=== PATIENT | female | born 1995 | race Caucasian/White ===

== ENCOUNTER 2017-03-23 08:43 | Day surgery (SDC) | payer OTHER ==
[~2017-03-23] VITALS: Ht 160 cm; Wt 79.4 kg
[~2017-03-23 08:43] MED LIST: BACTRIM DS1 TAB PO; BACTROBAN TOP; CIPRO500 MG OR; DOXYCYCL HYC100 MG PO; KEFLEX500 MG PO; LORTAB 5 OR; LORTAB 5/3255 MG PO; LORTAB 7.57.5 MG PO; MUPIROCIN2 % EX; NO HOME MEDS; NORTREL PO; PRILOSEC20 MG PO; ULTRAM50 M1 OR; ULTRAM50 MG PO
[2017-03-23] MEDS ORDERED: MOTRIN400 MG PO (12:35)
[2017-03-23 14:56] VITALS: BP 100/55
== END 2017-03-23 13:05 | disposition home or self-care (01) | DRG 572 ==
LOC: ORM 08:43
PROVIDERS: ATTEND Surgery
PROC: 0JBM0ZZ Excision of Left Upper Leg Subcutaneous Tissue and Fascia, Open Approach (ICD-10-PCS; principal; 2017-03-23)
DX: L72.9 Follicular cyst of the skin and subcutaneous tissue, unspecified (principal)

== ENCOUNTER 2021-01-02 07:30 | Day surgery (SDC) | payer OTHER ==
[~2021-01-02] VITALS: Ht 160 cm; Wt 84.4 kg
[~2021-01-02 07:30] MED LIST changes: +BIRTH CONTROL PILL PO; +MOTRIN400 MG PO; +PRENATA3 PO; +STOOL SOFTENER100 M1 PO; +TORADOL PO
[2021-01-02] MEDS ORDERED: PERCOCET 5/321 COMBO PO (09:24)
[2021-01-02 10:16] VITALS: BP 96/52
== END 2021-01-02 10:05 | disposition home or self-care (01) | DRG 833 ==
LOC: ORM 07:30
PROVIDERS: ATTEND Surgery
PROC: 0H88XZZ Division of Buttock Skin, External Approach (ICD-10-PCS; principal; 2021-01-02)
DX: O99.612 Diseases of the digestive system complicating pregnancy, second trimester (principal); K60.3 Anal fistula; Z3A.22 22 weeks gestation of pregnancy
CPT/HCPCS: C9290